=== PATIENT | male | born 1950 | race Two or more races ===

== ENCOUNTER 2021-08-07 09:39 | Inpatient (IN) | payer OTHER ==
[~2021-08-07] VITALS: Ht 185.4 cm; Wt 130.2 kg
[2021-08-07] MEDS ORDERED: LOSARTAN-HCTZ1 EAC1 PO (09:52)
== END 2021-08-13 16:45 | disposition home or self-care (01) | DRG 690 ==
LOC: ER 09:39 → MEDI 22:56
PROVIDERS: ADMIT Internal Medicine; ATTEND Internal Medicine
DX: N39.0 Urinary tract infection, site not specified (principal); N41.0 Acute prostatitis; R33.8 Other retention of urine; K80.20 Calculus of gallbladder without cholecystitis without obstruction; K76.0 Fatty (change of) liver, not elsewhere classified; R10.2 Pelvic and perineal pain; I10 Essential (primary) hypertension; E66.8 Other obesity; Z68.37 Body mass index [BMI] 37.0-37.9, adult; Z20.822 Contact with and (suspected) exposure to COVID-19; N40.0 Benign prostatic hyperplasia without lower urinary tract symptoms

== ENCOUNTER 2021-08-28 19:34 | Emergency (ER) | payer OTHER ==
[~2021-08-28] VITALS: Ht 185.4 cm; Wt 129.7 kg
[~2021-08-28 19:34] MED LIST: LOSARTAN-HCTZ1 EAC1 PO
[2021-08-28] MEDS ORDERED: LEVOFLOXACIN500 MG PO (20:16)
[2021-08-28] MEDS ORDERED: TAMS0.4C PO (20:16)
[2021-08-28] MEDS ORDERED: ACID CONTROLLER20 MG PO (20:17)
[2021-08-28] MEDS ORDERED: LOSARTAN-HCTZ1 EAC1 PO (20:17)
[2021-08-28] MEDS ORDERED: ABATINEX680 MG PO (20:18)
[2021-08-28] MEDS ORDERED: SIMVASTATIN10 MG PO (20:18)
[2021-08-28] MEDS ORDERED: PROSCAR5 MG PO (20:18)
== END 2021-08-28 22:18 | disposition home or self-care (01) ==
LOC: ER 19:34
DX: N39.0 Urinary tract infection, site not specified (principal)